=== PATIENT | male | born 2000 | race Caucasian/White ===

== ENCOUNTER 2023-09-14 10:38 | Emergency (ER) | payer OTHER, SELFPAY ==
[2023-09-14 10:56] VITALS: BP 162/107
--- NOTE | 2023-09-14 11:17 | ED.GENMED ---
History of Present Illness
General
Chief Complaint: Male Genito-Urinary Symptoms
Source: patient
Exam Limitations: none
Time Seen by Provider: 09/14/23 11:13
Travel History
Have you had any contact with someone who has COVID-19?: No
Do you have any symptoms of coronavirus? Fever > 100 degrees, chills, cough, shortness of breath, sore throat, loss of taste or smell, muscle aches, or headache?: No
History of Present Illness
History of Present Illness:
See MDM
Past History
Past History
ED Past Medical History: None
ED Past Surgical History: Other (Dental)
Social History
Tobacco: Non-smoker
Alcohol: None
Phy Exam
Physical Exam
Physical Exam:
See MDM
Course
Orders/Labs/Results
Orders:
Orders
09/14/23 11:00
Scrotum US [US Scrotum] Urgent
Comment:
Reason For Exam: testicular pain
09/14/23 11:56
Urinalysis Reflex To Culture Urgent
Date Specimen was Collected: 09/14/23
Time Specimen was Collected: 11:40
Vital Signs
Initial and Last Documented VS:
Initial Vital Signs
Temp Pulse Resp BP Pulse Ox
98.7 F 73 18 162/107 99
09/14/23 10:56 09/14/23 10:56 09/14/23 10:56 09/14/23 10:56 09/14/23 10:56
Last Documented Vital Signs
Temp Pulse Resp BP Pulse Ox
98.7 F 73 18 162/107 99
09/14/23 10:56 09/14/23 10:56 09/14/23 10:56 09/14/23 10:56 09/14/23 10:56
MDM/Problems Addressed
Differential Diagnosis Includes:
HPI and MDM Narrative:
23-year-old male presenting with resolving left testicle pain. Patient noted left testicle pain while he was walking on the stairs. He felt a twist. When he evaluated his testicle around 10 AM, he had the feeling as if it was backwards. Patient
states symptoms like this has happened in the past. Patient states that he feels like he twisted back to normal
Will obtain ultrasound but I did discuss the likely negative ultrasound. We discussed the possibility of intermittent torsion and discussed outpatient urology follow up
Physical exam
General: Well appearing and non-toxic
HEENT: protecting airway
Neck: appears supple
CV: No evidence of cyanosis
Resp: No accessory muscle use
Abd: Non-distended
: No high riding testicle noted. No testicle tenderness. Cremasteric reflex intact
Extremities: No deformities
Neuro: alert
Psych: Normal affect
Skin: Intact
Problems Addressed including Acute and Chronic Conditions affecting care:
1. Testicle pain
Acuity: acute
Prognosis: stable
Details: Symptoms have since resolved. Will obtain ultrasound. Discussed likelihood of intermittent torsion and outpatient urology followup
Updates
Ultrasound negative for acute pathology. I did discuss the incidental findings. Discussed outpatient follow-up with urology and patient feels comfortable going home and remains pain-free
Differential Diagnosis (but not limited to): Intermittent testicular torsion, testicular torsion, epididymitis
Testing considered: Urinalysis but he denies symptoms
Drug therapy (if applicable): OTC meds, please see d/c instruction regarding Rx drugs
Amount and/or Complexity of Data Reviewed
Clinical info obtained from: Patient
External data reviewed: N/A
Labs I independently reviewed (but not limited to): N/A
Radiology: US report reviewed
Pulse Ox: not hypoxic
EKG independently reviewed: N/A
Addressing Machine Operator: N/A
Critical Care: N/A
Risk of Complication:
Social Determinants of health: Good social support
Discussed with other providers: N/A
Escalation of Care includes Admit/Obs: After being observed in the Emergency Department, pt stable for discharge.
Occasional wrong word or 'sound a like' substitutions may have occurred due to the inherent limitations of voice recognition software. Read the chart carefully and recognize, using context, where substitutions have occurred.
*Critical Care Note
Total Time (30-74mins, 75-104mins- exclusive of procedures): Not Applicable
ED Attending Note
-
Portions of this chart may have been created with voice recognition software.� Occasional wrong word or��sound alike� substitutions may have occurred due to the inherent limitations of voice recognition software.
Discharge Plan
Departure
Patient Disposition: Home (Routine Discharge)
Date of Disposition: 09/14/23
Time of Disposition: 12:05
Patient with high blood pressure during this ER visit?: Yes
Discharge Problem:
Left testicular pain
Instructions: BLOOD PRESSURE
Referrals:
Yfn Suh MD [Active] -
NONE,* [Family Provider] -
Activity Restrictions/Additional Instructions:
There was no evidence today on the ultrasound that your testicle is twisted. I cannot prove that it did not twist and then quickly untwist. This is something called intermittent torsion. You should call the urologist for evaluation as this could
be fixed before it becomes a problem.
Interventions
Interventions:
*Risk Screen - Suicide Last Done: 09/14/23 10:58
*General Assessment Last Done: 09/14/23 10:58
*Neglect/Abuse Screening Last Done: 09/14/23 10:58
Discharge Date and Time
Print Language: [place]
[2023-09-14 12:24] LABS: Urine Albumin Negative (Neg - Trace); Urine Bilirubin Negative (Negative); Urine Character Clear (Clear); Urine Color Yellow; Urine Glucose Negative (Negative); Urine Ketone Negative (Negative); Urine Leukocyte Negative (Negative); Urine Nitrite Negative (Negative); Urine Occult Blood Negative (Negative); Urine Urobilinogen Negative (Neg - 1+)
== END 2023-09-14 12:13 | disposition home or self-care (01) ==
LOC: EMR 10:38
PROVIDERS: EMERGENCY PHYSICIAN Student in an Organized Health Care Education/Training Program
DX: N50.812 Left testicular pain (principal); R03.0 Elevated blood-pressure reading, without diagnosis of hypertension
CPT/HCPCS: 99284; 76870; 81003; 93976

== ENCOUNTER 2024-04-22 12:44 | Emergency (ER) | payer OTHER, SELFPAY ==
[2024-04-22 12:46] VITALS: BP 161/104
--- NOTE | 2024-04-22 13:37 | EDRN ---
Patient is calm and cooperative. Patient stated that he's concerned that he had sex with someone Monday who could be + HIV. Patient stated that he also has suicidal thoughts with no plan and has not had any prior attempts. Patient stated that he
does take medications for anxiety and sees a therapist and psychiatrist. Patient stated that he also needs help with ETOH use when asked if he was interested in going to an inpatient program.
--- NOTE | 2024-04-22 13:56 | ED.GENMED ---
History of Present Illness
General
Chief Complaint: Blood and Body Fluid Exposure
Time Seen by Provider: 04/22/24 13:32
History of Present Illness
History of Present Illness:
24-year-old male who presents to the emergency department with a complaint of potential HIV exposure. He notes that he had unprotected vaginal and oral intercourse with an individual that is a male to female transgender and has a history of anal
receptive intercourse with men. The HIV status of this patient is not known. He also reports depression and vague suicidal ideation with no plan secondary to recent relationship ending. Denies access to weapons. He does report increased alcohol
and marijuana use recently, would like to speak with somebody regarding his substance abuse.
Past History
Past History
ED Past Medical History: None
ED Past Surgical History: Other (Dental)
Social History
Tobacco: Non-smoker
Alcohol: None
Review of Systems
Review of Systems
Allergies reviewed?: Yes
All Other Systems: ROS reviewed and negative except as documented in HPI and ROS
Phy Exam
Physical Exam
Physical Exam:
GEN: Well appearing, NAD, WDWN
HEENT: Oral mucosa moist, no scleral icterus
Cardiac: Regular rate
Lung: No respiratory distress, no tachypnea
MSK: No gross deformity or injuries
Skin: Good color, no pallor or jaundice, no rashes
Neuro: AO x3, moves all extremities freely
Psych: Calm, cooperative, flat affect not responding to internal stimulus
Course
Orders/Labs/Results
Orders:
Orders
04/22/24 12:51
1:1 Observation - Suicide/ Violent Behavior As Directed
Crisis Consult Urgent
Reason for Consult: depression, SI no plan
04/22/24 14:15
HIV 4th Generation [HIV Combo] Urgent
04/22/24 14:32
Chlamydia/GC by PCR Urgent
LIZ Source: Urine
Specimen Description:
Source:: URINE
Date Specimen was Collected: 04/22/24
Time Specimen was Collected: 14:27
Vital Signs
Initial and Last Documented VS:
Initial Vital Signs
Temp Pulse Resp BP Pulse Ox
98.6 F 100 16 161/104 99
04/22/24 12:46 04/22/24 12:46 04/22/24 12:46 04/22/24 12:46 04/22/24 12:46
Last Documented Vital Signs
Temp Pulse Resp BP Pulse Ox
98.6 F 100 16 161/104 99
04/22/24 12:46 04/22/24 12:46 04/22/24 12:46 04/22/24 12:46 04/22/24 12:46
MDM/Problems Addressed
MDM/Problems Addressed:
Although I suspect the exposure risk is low we will start the patient on HAART therapy for HIV postexposure prophylaxis for 1 month, he is within the 72-hour window where this may be beneficial. Encouraged him to speak with a sexual partner about
HIV testing performed and if negative would obviate the need for further antiretrovirals. Crisis and B cares evaluated the patient, he does not require inpatient resources.
*Critical Care Note
Total Time (30-74mins, 75-104mins- exclusive of procedures): Not Applicable
ED Attending Note
-
Portions of this chart may have been created with voice recognition software.� Occasional wrong word or��sound alike� substitutions may have occurred due to the inherent limitations of voice recognition software.
Discharge Plan
Departure
Patient Disposition: Home (Routine Discharge)
Date of Disposition: 04/22/24
Time of Disposition: 14:48
Patient with high blood pressure during this ER visit?: No
Discharge Problem:
High-risk sexual behavior, Depression
Instructions: Anxiety, Adult (DC)
Prescriptions:
New
Biktarvy 30-120-15 mg tablet
1 tab PO DAILY 30 Days Qty: 30 0RF
Activity Restrictions/Additional Instructions:
Please contact your sexual partner and request they obtain an HIV test; if they have a negative HIV test, you can discontinue the medication. Otherwise, taking the medication for one month is highly preventive of HIV transmission
A negative HIV test today for you does not mean that you did not get HIV from your partner. Having a repeat HIV test done in 6 months would provide more reassurance
Interventions
Interventions:
*Risk Screen - Suicide Last Done: 04/22/24 12:50
*General Assessment Last Done: 04/22/24 12:50
*Neglect/Abuse Screening Last Done: 04/22/24 12:50
ED- Fall Risk Assessment Last Done: 04/22/24 13:36
*ED COVID-19 Vaccine History Last Done: 04/22/24 12:50
ED-EENT Assessment Last Done: 04/22/24 13:36
ED-Psychological Assessment Last Done: 04/22/24 13:36
ED-Skin Assessment Last Done: 04/22/24 13:36
Discharge Date and Time
Print Language: [place]
--- NOTE | 2024-04-22 15:19 | EDRN ---
Reviewed discharge instructions with patient. Verbalized understanding.
[2024-04-22 15:20] VITALS: BP 130/72
[2024-04-23 16:22] LABS: HIV Combo Negative (Negative)
== END 2024-04-22 15:21 | disposition home or self-care (01) ==
LOC: EMR 12:44
PROVIDERS: Physician Assistant; EMERGENCY PHYSICIAN Emergency Medicine
DX: F32.A Depression, unspecified (principal); F64.0 Transsexualism; Z72.51 High risk heterosexual behavior; R45.851 Suicidal ideations
CPT/HCPCS: 99283; 87389; 87491; 87591

== ENCOUNTER → 2024-12-30 13:36 | Outpatient (REF) | payer OTHER, SELFPAY | LOC: RAD 13:36 | PROVIDERS: ATTENDING PHYSICIAN Student in an Organized Health Care Education/Training Program | DX: M25.512 Pain in left shoulder (principal) | CPT/HCPCS: 23350; 73040; 73222 ==